=== PATIENT | female | born 1950 | race Two or more races ===

== ENCOUNTER 2017-02-27 17:40 | Inpatient (IN) | payer MEDICARE ==
[~2017-02-27] VITALS: Ht 152.4 cm; Wt 66.7 kg
--- NOTE | 2017-02-27 17:47 | NUR ---
PT [id number] FROM HOME:LOWER BACK PAIN. RIGHT LEG/ARM NUMBNESS. ANXIETY. PLACED ON MONITOR. AWAITING MD ORDER
--- NOTE | 2017-02-27 17:56 | NUR ---
CODE STROKE CALLED
--- NOTE | 2017-02-27 17:58 | NUR ---
CALLED [facility]'S TELESTROKE HOTLINE, SPOKE WITH SANTINO, PRESENTED PT, AWAITING CALL BACK FROM (NEUROLOGIST)
--- NOTE | 2017-02-27 17:58 | NUR ---
EKG IN PROGRESS
--- NOTE | 2017-02-27 17:58 | NUR ---
LAC #18 IV ACCESS. BLOOD SAMPLE COLLECTED SENT TO LAB
--- NOTE | 2017-02-27 18:00 | NUR ---
PT TAKEN TO CT VIA [facility] ACLS PROTOCOL
--- NOTE | 2017-02-27 18:00 | NUR ---
PT TO CT
--- NOTE | 2017-02-27 18:05 | NUR ---
TELENEURO AT BEDSIDE FOR ASSESSMENT
--- NOTE | 2017-02-27 18:09 | NUR ---
PT BACK FROM CT
[2017-02-27 18:14] LABS: BASOPHILS % (AUTO) 0.6 % (0.0-2.0); CALCIUM, SERUM 9.8 mg/dL (8.5-10.1); CARBON DIOXIDE 34 mmol/L (21-32); CHLORIDE 106 mmol/L (98-107); CREATININE 1.1 mg/dL (0.6-1.3); EOSINOPHILS # (AUTO) 0.3 /CMM (0.0-0.7); EOSINOPHILS % (AUTO) 4.1 % (0.0-6.0); GLUCOSE 130 mg/dL (74-106); HEMATOCRIT 40 % (33-45); HEMOGLOBIN 13.6 g/dL (11.5-14.8); LYMPHOCYTES % (AUTO) 26.6 % (20.0-44.0); MEAN CORPUSCULAR HEMOGLOBIN 30 PG (26.0-33.0); MEAN CORPUSCULAR HGB CONC 34 g/dl (31.0-36.0); MEAN CORPUSCULAR VOLUME 87 fL (82-100); MONOCYTES # (AUTO) 0.6 /CMM (0.1-1.30); MONOCYTES % (AUTO) 8.1 % (2.0-12.0); NEUTROPHILS # (AUTO) 4.6 /CMM (1.8-8.9); NEUTROPHILS % (AUTO) 60.6 % (43.0-81.0); PLATELET COUNT (AUTO) 162 /CMM (150-450); POTASSIUM 3.7 mmol/L (3.5-5.1); RDW COEFFICIENT OF VARIATION 12.8 (11.5-15.0); RED BLOOD CELL COUNT(AUTO) 4.56 MIL/uL (4.0-5.2); SODIUM SERUM 144 mmol/L (136-145); UREA NITROGEN, BLOOD 24 mg/dL (7-18); WHITE BLOOD COUNT (AUTO) 7.5 K/uL (4.3-11.0)
[2017-02-27 18:19] LABS: INR 0.97 (0.87-1.13); PROTHROMBIN TIME 10.1 SECS (9.5-12.7)
[2017-02-27 18:23] LABS: TROPONIN I < 0.017 ng/mL (0.00-0.056)
[2017-02-27] MEDS ORDERED: ATOR10TA PO (18:35)
[2017-02-27] MEDS ORDERED: LOSA1TAB39 PO (18:35)
[2017-02-27] MEDS ORDERED: METO25TA6 PO (18:35)
[2017-02-27] MEDS ORDERED: CLON0.1T PO (18:35)
[2017-02-27] MEDS ORDERED: ASPI81TA2 PO (18:35)
[2017-02-27] MEDS ORDERED: POTA20TA83 PO (18:35)
--- NOTE | 2017-02-27 19:21 | NUR ---
[facility] PAGED, CLOTH SHEARING SUPERVISOR
--- NOTE | 2017-02-27 19:24 | NUR ---
GAVE REPORT TO JAMEE FOR KRISTA
--- NOTE | 2017-02-27 19:32 | NUR ---
CALLED NURSING SUP. FOR TELE BED
--- NOTE | 2017-02-27 19:46 | NUR ---
[facility] REPAGED
--- NOTE | 2017-02-27 19:48 | NUR ---
DR. RAE IS ON THE PHONE WITH DR. RODRIGUEZ RE: PT ADMISSION
--- NOTE | 2017-02-27 20:15 | NUR ---
REPORT GIVEN TO MARTY QUAN - COCOA BEAN ROASTER
--- NOTE | 2017-02-27 20:25 | NUR ---
TELE/RN NOTES RECEIVED PT. FROM ER. PT. IS AWAKE, ALERT AND ORIENTED X4. BREATHING EVEN AND UNLABORED ON ROOM AIR. NO SOB, RESPIRATORY DISTRESS OR COMPLAINTS OF PAIN NOTED AT THIS TIME. PT. DENIES ANY WEAKNESS OR HEADACHE. NEURO CHECK NORMAL. ORIENTED PT. TO ROOM. PLACED EXTERNAL SCHEDULE HANGER ON PT. CURRENT RHYTHM = SINUS RHYTHM HR 68. EDUCATED PT. ON STROKE S/S. PT. VERBALIZED UNDERSTANDING. SIDE RAILS PADDED. SEIZURE PRECAUTIONS IMPLEMENTED. BED IN LOWEST POSITION, CALL LIGHT WITHIN REACH, WILL CONTINUE TO MONITOR.
--- NOTE | 2017-02-27 20:49 | NUR ---
PER DR. KYRA PARDO FOR ECHO/CAROTID ULTRASOUND TO BE DONE TOMORROW MORNING
[2017-02-27 20:54] VITALS: BP 151/78
[2017-02-27] MEDS ORDERED: METOPROLOL TARTRATE 25 MG TABLET PO SCH (21:00)
[2017-02-27] MEDS ORDERED: Medication Not On Formulary EA (Losartan/Hydrochlorothiazide (Losartan-Hctz 100-25 Mg Ta PO SCH (21:00)
[2017-02-27] MEDS: ATORVASTATIN 10 MG TABLET PO SCH (21:00)
[2017-02-27] MEDS ORDERED: CLONIDINE HCL 0.1 MG TABLET PO SCH (21:00)
[2017-02-27] MEDS ORDERED: POTASSIUM CHLORIDE 20 MEQ TAB.PRT.SR PO SCH (21:00)
[2017-02-27] MEDS ORDERED: LOSARTAN POTASSIUM 50 MG TABLET PO SCH (21:01)
[2017-02-27] MEDS ORDERED: HYDROCHLOROTHIAZIDE 25 MG TABLET PO SCH (21:01)
--- NOTE | 2017-02-27 21:05 | NUR ---
TELE/RN NOTES SPOKE WITH MYRIAM KAY FROM RADIOLOGY. MYRIAM STATED SHE SPOKE WITH DR. RAE REGARDING PT. STAT CAROTID DUPLEX AND STAT ECHOCARDIOGRAM. VP RESEARCH IS NOT HERE TONIGHT. SHE STATED PER DR. RAE OK FOR CAROTID DUPLEX AND ECHO TO BE DONE TOMORROW. WILL CONTINUE TO MONITOR.
--- NOTE | 2017-02-27 21:08 | NUR ---
RODO WESLEY RN IS AWARE ECHO/CAROTID ULTRASOUND WILL BE DONE TOMORROW PER DR. RAE
[2017-02-27 21:26] LABS: BASOPHILS # (AUTO) 0.1 /CMM (0.0-0.2); BASOPHILS % (AUTO) 0.6 % (0.0-2.0); EOSINOPHILS # (AUTO) 0.3 /CMM (0.0-0.7); EOSINOPHILS % (AUTO) 3.2 % (0.0-6.0); HEMATOCRIT 39 % (33-45); LYMPHOCYTES # (AUTO) 2.2 /CMM (0.8-4.8); LYMPHOCYTES % (AUTO) 26.4 % (20.0-44.0); MEAN CORPUSCULAR HEMOGLOBIN 29 PG (26.0-33.0); MEAN CORPUSCULAR HGB CONC 34 g/dl (31.0-36.0); MEAN CORPUSCULAR VOLUME 87 fL (82-100); MONOCYTES # (AUTO) 0.5 /CMM (0.1-1.30); MONOCYTES % (AUTO) 5.7 % (2.0-12.0); NEUTROPHILS # (AUTO) 5.3 /CMM (1.8-8.9); NEUTROPHILS % (AUTO) 64.1 % (43.0-81.0); PLATELET COUNT (AUTO) 167 /CMM (150-450); RDW COEFFICIENT OF VARIATION 13.1 (11.5-15.0); RED BLOOD CELL COUNT(AUTO) 4.43 MIL/uL (4.0-5.2); WHITE BLOOD COUNT (AUTO) 8.3 K/uL (4.3-11.0)
[2017-02-27 21:30] LABS: CALCIUM, SERUM 9.5 mg/dL (8.5-10.1); POTASSIUM 3.3 mmol/L (3.5-5.1)
[2017-02-27 21:38] LABS: INR 0.97 (0.87-1.13); PROTHROMBIN TIME 10.4 SECS (9.5-12.7)
[2017-02-27 21:42] LABS: ALBUMIN 3.8 g/dL (3.4-5.0); BILIRUBIN,TOTAL 0.5 mg/dL (0.2-1.0); THYROID STIMULATING HORMONE 0.609 uIU/mL (0.358-3.74)
[2017-02-27] MEDS ORDERED: ASPIRIN EC 81 MG TABLET.DR PO ONE (22:06)
[2017-02-27] MEDS ORDERED: ATORVASTATIN 10 MG TABLET ONE (22:07)
[2017-02-27] MEDS ORDERED: CLONIDINE HCL 0.1 MG TABLET ONE (22:07)
[2017-02-27] MEDS ORDERED: ENOXAPARIN SODIUM 40 MG/0.4 ML DISP.SYRIN SQ ONE (22:08)
[2017-02-27] MEDS ORDERED: METOPROLOL TARTRATE 50 MG TABLET ONE (22:09)
[2017-02-27] MEDS ORDERED: POTASSIUM CHLORIDE 20 MEQ TAB.PRT.SR PO ONE (22:10)
[2017-02-27] MEDS: ENOXAPARIN SODIUM 40 MG/0.4 ML DISP.SYRIN SQ SCH (22:35)
[2017-02-27] MEDS: ASPIRIN 81 MG TAB.CHEW PO SCH (22:56)
[2017-02-27] MEDS: BLOOD SUGAR DIAGNOSTIC 1 EACH STRIP IN SCH (23:03)
[2017-02-28] MEDS ORDERED: BLOOD SUGAR DIAGNOSTIC 1 EACH STRIP IN SCH
[2017-02-28 00:13] VITALS: BP 127/64
[2017-02-28 03:15] LABS: BASOPHILS # (AUTO) 0.1 /CMM (0.0-0.2); BASOPHILS % (AUTO) 0.7 % (0.0-2.0); EOSINOPHILS # (AUTO) 0.3 /CMM (0.0-0.7); EOSINOPHILS % (AUTO) 3.7 % (0.0-6.0); HEMATOCRIT 40 % (33-45); HEMOGLOBIN 13.5 g/dL (11.5-14.8); LYMPHOCYTES # (AUTO) 2.5 /CMM (0.8-4.8); LYMPHOCYTES % (AUTO) 31.8 % (20.0-44.0); MEAN CORPUSCULAR HEMOGLOBIN 30 PG (26.0-33.0); MEAN CORPUSCULAR HGB CONC 34 g/dl (31.0-36.0); MEAN CORPUSCULAR VOLUME 88 fL (82-100); MONOCYTES # (AUTO) 0.5 /CMM (0.1-1.30); MONOCYTES % (AUTO) 6.4 % (2.0-12.0); NEUTROPHILS # (AUTO) 4.5 /CMM (1.8-8.9); NEUTROPHILS % (AUTO) 57.4 % (43.0-81.0); PLATELET COUNT (AUTO) 159 /CMM (150-450); RDW COEFFICIENT OF VARIATION 13.8 (11.5-15.0); RED BLOOD CELL COUNT(AUTO) 4.55 MIL/uL (4.0-5.2); WHITE BLOOD COUNT (AUTO) 7.8 K/uL (4.3-11.0)
[2017-02-28 03:27] LABS: CALCIUM, SERUM 9.4 mg/dL (8.5-10.1); CREATININE 0.9 mg/dL (0.6-1.3); POTASSIUM 3.1 mmol/L (3.5-5.1)
[2017-02-28 03:29] LABS: PROTHROMBIN TIME 10.7 SECS (9.5-12.7)
[2017-02-28 04:00] VITALS: BP 130/61
--- NOTE | 2017-02-28 06:31 | NUR ---
TELE/RN NOTES PT. LYING IN BED RESTING. BREATHING EVEN AND UNLABORED ON ROOM AIR. NO SOB, RESPIRATORY DISTRESS OR COMPLAINTS OF PAIN NOTED AT THIS TIME. NO COMPLAINTS OF WEAKNESS OR HEADACHE AT THIS TIME. NEURO CHECKS PERFORMED Q4 HOURS. PT. WITH EXTERNAL QUALITY IMPROVEMENT MANAGER ON PT. CURRENT RHYTHM = SINUS [place] HR 58. ALL PT. NEEDS MET. BED IN LOWEST POSITION, SIDE RAILS UP X2, ALL SIDE RAILS PADDED. SEIZURE AND ASPIRATION PRECAUTIONS IMPLEMENTED. CALL LIGHT WITHIN REACH, WILL ENDORSE TO DAYSHIFT NURSE FOR CONTINUITY OF CARE.
[2017-02-28] MEDS: BLOOD SUGAR DIAGNOSTIC 1 EACH STRIP IN SCH ×4 (06:49→22:31)
[2017-02-28 07:30] LABS: APPEARANCE,URINE CLEAR (CLEAR); BILIRUBIN,URINE NEGATIVE (NEGATIVE); BLOOD, URINE NEGATIVE Ery/uL (NEGATIVE); COLOR,URINE YELLOW (YELLOW); KETONES,URINE NEGATIVE (NEGATIVE); LEUKOCYTE ESTERASE ,URINE TRACE (NEGATIVE); NITRITE, URINE NEGATIVE (NEGATIVE); PH,URINE 5.5 (5.0-8.0); PROTEIN,URINE NEGATIVE (NEGATIVE); UGLUCOSE NEGATIVE (NEGATIVE); UROBILINOGEN,URINE 0.2 EU/dL (0.2)
--- NOTE | 2017-02-28 07:30 | NUR ---
MS/RN OPENING NOTE PT. IS LYING IN BED SLEEPING. NO S/S OF DISTRESS, NO SOB, BREATHING ON ROOM AIR EVENLY AND UNLABORED. BED IS IN LOW POSITION, 2 SIDE RAILS UP, CALL LIGHT WITHIN REACH, AND ENT CONSULTANT NURSE PROVIDED REPORT. PT. IS ON TELEMETRY WITH LEADS ON.
--- NOTE | 2017-02-28 07:35 | NUR ---
MS/RN PT. IS WEARING EXTERNAL ACTIVITY ASSISTANT WITH LEADS ON.
[2017-02-28 07:40] LABS: BACTERIA,URINE 2+ /HPF (None Seen)
[2017-02-28 08:00] VITALS: BP 135/65
[2017-02-28 08:03] LABS: TROPONIN I < 0.017 ng/mL (0.00-0.056)
[2017-02-28 08:04] LABS: THYROID STIMULATING HORMONE 0.895 uIU/mL (0.358-3.74)
[2017-02-28] MEDS: POTASSIUM CHLORIDE 20 MEQ TAB.PRT.SR PO SCH ×3 (09:34→12:17)
[2017-02-28] MEDS: ATORVASTATIN 10 MG TABLET PO SCH (09:34)
[2017-02-28] MEDS: ASPIRIN 81 MG TAB.CHEW PO SCH (09:34)
[2017-02-28] MEDS: ACETAMINOPHEN 325 MG TABLET PO PRN ×2 (10:33→18:05)
--- NOTE | 2017-02-28 11:00 | NUR ---
MS/ RN BLOOD PRESSURE HOME MEDS WERE HELD PER Jasmine HANSON.
[2017-02-28 12:00] VITALS: BP 151/75
[2017-02-28 16:00] VITALS: BP_SYST 154; BP_SYST 158; BP_DIAS 79
--- NOTE | 2017-02-28 19:00 | NUR ---
MS/RN CLOSING NOTES PT. IS SITTING UP IN BED WATCHING TV AWAKE, A&OX4. NO S/S OF DISTRESS, NO SOB, PT. IS BREATHING ON ROOM AIR UNLABORED AND EVENLY. PT. HAS A LEFT ANTECUBITAL IV SITE INTACT. BED IS IN LOW POSITION, 2 SIDE RAILS UP, CALL LIGHT WITHIN REACH, AND ALL NEEDS ATTENDED TO. TYLENOL WAS GIVEN TO PT. FOR HEADACHE PAIN. WILL ENDORSE REPORT TO ORDER PACKER OR PACKAGER NURSE.
[2017-02-28 20:00] VITALS: BP 146/79
[2017-02-28] MEDS ORDERED: METOPROLOL TARTRATE 50 MG TABLET ONE (21:20)
[2017-02-28] MEDS: METOPROLOL TARTRATE 50 MG TABLET PO SCH (21:26)
[2017-02-28] MEDS: ENOXAPARIN SODIUM 40 MG/0.4 ML DISP.SYRIN SQ SCH (21:26)
[2017-03-01] VITALS (7 sets, daily range): BP systolic 136–164; BP diastolic 70–91
--- NOTE | 2017-03-01 06:24 | NUR ---
BIOLOGY INTERN NOTES AWAKE & RESPONSIVE. NOT IN ANY DISTRESS. NO SOB NOTED. DENIES ANY PAIN OR DISCOMFORT AT THIS TIME. ON TELE SR @ 86 WITH IV-HL PATENT & INTACT. MONITORED ACCORDINGLY. CALL LIGHT WITHIN REACH. BED IN LOWEST POSITION. SR UP X 2 FOR SAFETY. WILL ENDORSE TO NEXT SHIFT.
[2017-03-01 06:28] LABS: CALCIUM, SERUM 9.8 mg/dL (8.5-10.1); CREATININE 0.8 mg/dL (0.6-1.3); POTASSIUM 3.8 mmol/L (3.5-5.1)
--- NOTE | 2017-03-01 07:15 | NUR ---
ms rn Initial notes Received patient in bed, awake, head of bed elevated, no SOB or distress noted. Alert and oriented x 3, verbally responsive and able to make needs known. IV intact and patent. Kept patient clean and comfortable in bed, call light with in patient reach, will continue to monitor accordingly.
[2017-03-01] MEDS: BLOOD SUGAR DIAGNOSTIC 1 EACH STRIP IN SCH ×4 (08:10→22:20)
[2017-03-01] MEDS: ASPIRIN 81 MG TAB.CHEW PO SCH (08:11)
[2017-03-01] MEDS: ATORVASTATIN 10 MG TABLET PO SCH (08:11)
[2017-03-01] MEDS: METOPROLOL TARTRATE 50 MG TABLET PO SCH ×2 (08:12→20:50)
[2017-03-01] MEDS: ACETAMINOPHEN 325 MG TABLET PO PRN (08:39)
--- NOTE | 2017-03-01 09:44 | NUR ---
MS RN NOTES Richardson SERVICE PROVIDER came seen and examined the patient and ordered Ativan 0.5 mg 1 tab PO x 1only prior MRI of the Brain. [place] 5/325 mg 1 tab PO Q6hrs PRN. All orders carried out and noted. Will continue to monitor patient accordingly.
[2017-03-01] MEDS ORDERED: HYDROCODONE/APAP 5/325MG 1 EACH TABLET PO PRN (10:00)
--- NOTE | 2017-03-01 10:08 | NUR ---
TEXTED DR. NAVARRETE FOR MRI APPROVAL.
--- NOTE | 2017-03-01 10:15 | NUR ---
DR. NAVARRETE TEXTED BACK, SAID HE WILL LET US KNOW.
[2017-03-01] MEDS ORDERED: LORAZEPAM 0.5 MG TABLET PO ONE (11:00)
--- NOTE | 2017-03-01 11:50 | NUR ---
ms rn notes Dr. Garner came seen and examined the patient and ordered Nicotine patch 7mg Q24hrs. All orders carried out and noted. Will continue to monitor patient accordingly.
[2017-03-01] MEDS: NICOTINE PATCH (7MG) 7 MG PATCH.TD24 TD SCH (13:01)
[2017-03-01] MEDS ORDERED: LORAZEPAM 0.5 MG TABLET PO STA (15:19)
--- NOTE | 2017-03-01 19:14 | NUR ---
ms rn closing notes All needs provided, attended, and anticipated. Kept patient clean and comfortable in bed, call light with in patient reach, will continue to monitor accordingly. Endorsed to next shift RN to continue care.
--- NOTE | 2017-03-01 19:20 | NUR ---
MS/RN OPENING NOTES PT ASLEEP, RESTING COMFORTABLY IN BED, EASILY AROUSABLE TO NEARBY NOISE. ON ROOM AIR WITH NO DISTRESS NOTED. BREATHING EVEN AND UNLABORED. PT IS A/OX4. DENIES PAIN AT THIS TIME. IV TO LAC PATENT AND INTACT. ABLE TO MAKE NEEDS KNOWN. BED IN LOW/LOCKED POSITION WITH CALL LIGHT IN REACH. BED RAILS UPX2. WILL CONTINUE TO MONITOR
[2017-03-01] MEDS: ENOXAPARIN SODIUM 40 MG/0.4 ML DISP.SYRIN SQ SCH (20:51)
--- NOTE | 2017-03-01 22:25 | NUR ---
MS/RN NOTES BLOOD ENUXQ=070 NO INSULIN COVERAGE ORDERED. SNACKS PROVIDED AT BEDSIDE. WILL MONITOR FOR S/S OF HYPO/HYPERGLYCEMIA
[2017-03-02] MEDS: BLOOD SUGAR DIAGNOSTIC 1 EACH STRIP IN SCH ×2 (06:33→12:00)
--- NOTE | 2017-03-02 06:44 | NUR ---
MS/RN NOTES BLOOD QMVUH=395, NO INSULIN ORDERED FOR COVERAGE
--- NOTE | 2017-03-02 07:03 | NUR ---
MS/RN CLOSING NOTES PT AWAKE, A/OX3. ON ROOM AIR, BREATHING EVEN AND UNLABORED. DENIES PAIN. IV TO LAC PATENT AND INTACT. NEURO CHECKS Q4H. NO ACUTE CHANGES NOTED. SLEPT WELL THROUGHOUT THE NIGHT. ALL NEEDS MET AND ATTENDED TO. MADE PT COMFORTABLE THROUGHOUT SHIFT. BED IN LOW/LOCKED POSITION WITH CALL LIGHT IN REACH. BED RAILS UP. WILL ENDORSE TO AM SHIFT KRISTA.
--- NOTE | 2017-03-02 07:20 | NUR ---
RN OPEN NOTES RECEIVED REPORT FROM POLICE CAPTAIN PRECINCT NURSE. WILL CONTINUE TO MONITOR AND ASSESS PATIENT CONDITION
[2017-03-02] MEDS: ACETAMINOPHEN 325 MG TABLET PO PRN (07:40)
--- NOTE | 2017-03-02 07:45 | NUR ---
BLOOD PRESSURE IS HIGH 184/84, 187/80. SPOKE WITH VALENTIN. NEW ORDERS RECEIVED AND CARRIED OUT
[2017-03-02 08:00] VITALS: BP 184/84
[2017-03-02] MEDS ORDERED: CLONIDINE HCL 0.1 MG TABLET PO PRN (08:00)
[2017-03-02 08:07] VITALS: BP 184/84
[2017-03-02] MEDS: METOPROLOL TARTRATE 50 MG TABLET PO SCH (08:07)
[2017-03-02] MEDS: ASPIRIN 81 MG TAB.CHEW PO SCH (08:07)
[2017-03-02] MEDS: ATORVASTATIN 10 MG TABLET PO SCH (08:08)
[2017-03-02] MEDS: NICOTINE PATCH (7MG) 7 MG PATCH.TD24 TD SCH (08:09)
--- NOTE | 2017-03-02 09:45 | NUR ---
BLOOD PRESSURE RECHECKED 128/72 HEART RATE 81
[2017-03-02] MEDS ORDERED: CEFTRIAXONE 1 G in IV D5W 50 ML IV ONE (11:00)
[2017-03-02] MEDS ORDERED: IV NS 0.9% 250 ML IV ONE (11:28)
[2017-03-02] MEDS ORDERED: SECONDARY IV SET 1 EA INFUS.SET MC ONE (11:28)
[2017-03-02] MEDS ORDERED: IV SET PRIMARY PUMP SET 1 EA INFUS.SET MC ONE (11:28)
--- NOTE | 2017-03-02 14:15 | NUR ---
LAB DIRECTOR NOTES PATIENT'S DISCHARGE ORDER RECEIVED AND CARRIED OUT. PATIENT VERBALIZED UNDERSTANDING AND ALLOWED TIME TO ASK QUESTIONS. NO CONCERNS REGRADING DISCHARGE. PATIENT RECEIVED PRESCRIPTION AT TIME OF DISCHARGE. ALL PERSONAL BELONGING WITH PATIENT AT TIME OF DISCHARGE. IV SITE REMOVED. ID BAND REMOVED. PATIENT PICKED UP BY HER AND A PRIVATE CAR. PATIENT ESCORTED TO MAIN LOBBY WITH A RELIEF MATE.
== END 2017-03-02 14:15 | disposition home or self-care (01) | DRG 69 ==
LOC: ER 17:42 → TELE 20:09 → MED 03-01 09:24
PROVIDERS: ADMIT Internal Medicine; ATTEND Internal Medicine
DX: G45.9 Transient cerebral ischemic attack, unspecified (principal); I50.32 Chronic diastolic (congestive) heart failure; N39.0 Urinary tract infection, site not specified; E78.5 Hyperlipidemia, unspecified; M19.90 Unspecified osteoarthritis, unspecified site; I25.10 Atherosclerotic heart disease of native coronary artery without angina pectoris; G89.29 Other chronic pain; D32.9 Benign neoplasm of meninges, unspecified; E87.6 Hypokalemia; F17.210 Nicotine dependence, cigarettes, uncomplicated; I11.0 Hypertensive heart disease with heart failure; I70.0 Atherosclerosis of aorta; M79.606 Pain in leg, unspecified; R79.89 Other specified abnormal findings of blood chemistry
CPT/HCPCS: 36415; 70450-TC; 70551-TC; 71010-TC; 80048-TC; 80053-TC; 80061-TC; 80305; 81000-TC; 82306; 82962-TC; 83880; 84439-TC; 84443-TC; 84484-TC; 85025-TC; 85652-TC; 85730-TC; 87081-TC; 87086-TC; 92611-TC; 93307-TC; 93880-TC; 97001-TC; 97003-TC; A4606; J0696; J1650; J7050; J7060; Z7610

== ENCOUNTER 2021-06-03 21:48 | Inpatient (IN) | payer MEDICARE ==
[~2021-06-03] VITALS: Ht 152.4 cm; Wt 58.1 kg
[~2021-06-03 21:48] MED LIST: ASPI-1169 PO; ATOR10TA PO; CLON0.1T PO; LOSA1TAB39 PO; METO25TA6 PO; POTA20TA83 PO
--- NOTE | 2021-06-03 23:12 | NUR ---
BIBS FOR C/O DIZZINESS X 2 DAYS. 1ST DOSE PFIZER TAKE 06/02/21. PATIENT A/OX4. ON ROOM AIR TOLERATING WELL AT SPO2 95%.
--- NOTE | 2021-06-03 23:47 | NUR ---
ESTABLISHED IV RAC#20G
--- NOTE | 2021-06-03 23:50 | NUR ---
COVID SWAB PCR AND RAPID COLLECTED AND SENT TO LAB
[2021-06-03] MEDS ORDERED: MECLIZINE HCL 12.5 MG TABLET ONE (23:52)
[2021-06-03 23:56] LABS: BASOPHILS % (AUTO) 1.2 % (0.0-2.0); EOSINOPHILS % (AUTO) 0.1 % (0.0-6.0); HEMATOCRIT 39 % (33-45); HEMOGLOBIN 13.4 g/dL (11.5-14.8); LYMPHOCYTES # (AUTO) 0.4 K/uL (0.8-4.8); LYMPHOCYTES % (AUTO) 10.5 % (20.0-44.0); MEAN CORPUSCULAR HGB CONC 35 g/dl (31.0-36.0); MEAN CORPUSCULAR VOLUME 86 fL (82-100); MONOCYTES # (AUTO) 0.3 K/uL (0.1-1.30); NEUTROPHILS % (AUTO) 79.2 % (43.0-81.0); PLATELET COUNT (AUTO) 137 K/uL (150-450); RED BLOOD CELL COUNT(AUTO) 4.51 MIL/uL (4.0-5.2); WHITE BLOOD COUNT (AUTO) 3.8 K/uL (4.3-11.0)
[2021-06-04] MEDS ORDERED: IV NS 0.9% 1,000 ML BAG IV ONE
[2021-06-04] MEDS ORDERED: MECLIZINE HCL 12.5 MG TABLET PO ONE
--- NOTE | 2021-06-04 00:02 | NUR ---
PATIENT TAKEN TO RADIOLOGY FOR CT
--- NOTE | 2021-06-04 00:13 | NUR ---
PATIENT RETURN TO ER ROOM 1
[2021-06-04 00:20] LABS: CALCIUM, SERUM 9.8 mg/dL (8.5-10.1); CARBON DIOXIDE 31 mmol/L (21-32); CHLORIDE 98 mmol/L (98-107); GLUCOSE 108 mg/dL (74-106); POTASSIUM 3.6 mmol/L (3.5-5.1); SODIUM SERUM 137 mmol/L (136-145); UREA NITROGEN, BLOOD 21 mg/dL (7-18)
[2021-06-04 00:25] LABS: ALANINE AMINOTRANSFERASE 34 U/L (12-78); ALBUMIN 3.7 g/dL (3.4-5.0); ALKALINE PHOSPHATASE 75 U/L (46-116); ASPARTATE AMINOTRANSFERASE 23 U/L (15-37); BILIRUBIN,DIRECT 0.2 mg/dL (0.0-0.2); BILIRUBIN,TOTAL 0.9 mg/dL (0.2-1.0); TOTAL PROTEIN, SERUM 8.2 g/dL (6.4-8.2)
--- NOTE | 2021-06-04 02:09 | NUR ---
URINE SAMPLE COLLECTED AND SENT TO LAB
[2021-06-04 02:16] LABS: BILIRUBIN,URINE Negative (NEGATIVE); COLOR,URINE YELLOW (YELLOW); LEUKOCYTE ESTERASE ,URINE Trace (NEGATIVE); NITRITE, URINE Negative (NEGATIVE); PROTEIN,URINE Negative (NEGATIVE); UGLUCOSE Negative (NEGATIVE); UROBILINOGEN,URINE 0.2 EU/dL (0.2)
[2021-06-04] MEDS ORDERED: ASPIRIN 81 MG TAB.CHEW PO ONE (02:30)
[2021-06-04 02:37] LABS: BACTERIA,URINE Rare /HPF (None Seen); SQUAMOUS EPITHELIAL CELL,UR Few /HPF (None Seen)
[2021-06-04] MEDS ORDERED: ASPIRIN EC 81 MG TABLET.DR PO ONE (02:40)
[2021-06-04] MEDS ORDERED: ASPIRIN 81 MG TAB.CHEW ONE (02:41)
[2021-06-04 03:17] LABS: THYROID STIMULATING HORMONE 0.365 uIU/mL (0.358-3.74)
[2021-06-04] MEDS ORDERED: PANTOPRAZOLE 40 MG TABLET.DR PO ONE (07:29)
[2021-06-04] MEDS: PANTOPRAZOLE 40 MG TABLET.DR PO SCH (07:33)
[2021-06-04] MEDS ORDERED: VALS1TAB8 PO (07:38)
[2021-06-04] MEDS ORDERED: ERGO500093 PO (07:38)
--- NOTE | 2021-06-04 08:26 | NUR ---
US AT BEDSIDE
[2021-06-04] MEDS: ASPIRIN EC 325 MG TABLET.DR PO SCH (09:00)
[2021-06-04] MEDS ORDERED: ASPIRIN EC 325 MG TABLET.DR PO ONE (10:05)
--- NOTE | 2021-06-04 11:17 | NUR ---
ROOM ASSIGNMENT: 102
--- NOTE | 2021-06-04 11:25 | NUR ---
REPORT GIVEN TO GLADIS FERGUSON FOR KRISTA
[2021-06-04 12:06] VITALS: BP 138/52
--- NOTE | 2021-06-04 12:07 | NUR ---
received awake,alert ,no acute distress,vss,awaits swallow eval,
[2021-06-04 16:00] VITALS: BP 138/59
--- NOTE | 2021-06-04 18:48 | NUR ---
RN NOTE PATIENT OBSERVED IN AWAKE, ALERT AND ORIENTED X4, ABLE TO VERBALIZE NEEDS, ON TELE MONITOR, SR OF 78, ON ROOM AIR O2 SAT OF 98%, BREATHING EVEN AND UNLABORED, NIHSS ASSESSMENT DONE, AMBULATORY WITH SUPERVISION, NO PAIN COMPLAINS, IV SITE ON RIGHT AC PATENT FLUSHING WELL, SAFETY MEASURE OBSERVED, BED WHEELS LOCK, CALL LIGHT WITHIN REACH, WILL CONTINUE TO MONITOR. Addendum: 06/04/21 at 1856 by KIRSTEN SANDERS RN RN NOTE PATIENT OBSERVED IN AWAKE, ALERT AND ORIENTED X4, ABLE TO VERBALIZE NEEDS, ON TELE MONITOR, SR OF 78, ON ROOM AIR O2 SAT OF 98%, BREATHING EVEN AND UNLABORED, NIHSS ASSESSMENT DONE, AMBULATORY WITH SUPERVISION, NO PAIN COMPLAINS, IV SITE ON RIGHT AC PATENT FLUSHING WELL, SAFETY MEASURE OBSERVED, BED WHEELS LOCK, CALL LIGHT WITHIN REACH, WILL CONTINUE TO MONITOR. WILL ENDORSE TO NOC SHIFT.
--- NOTE | 2021-06-04 19:30 | NUR ---
RN OPENING NOTES: RECEIVED PT A/OX4 IN BED RESTING COMFORTABLY. PATIENT IN NO S/SX OF ACUTE DISTRESS AT THIS TIME. NO SOB NOTED. PATIENT'S BREATHING IS EVEN AND UNLABORED. PATIENT IS ON ROOM AIR; TOLERATING WELL. PATIENT ON TELE MONITORING READING SINUS RHYTHM HR IS AT 89 AT THE TIME OF RECEIVED. PATIENT ON 2GM SODIUM DIET; TOLERATES WELL. NOTED IV SITE ON R AC#20; PATENT, INTACT AND FLUSHING WELL; NO S/S OF INFECTION OR INFILTRATION. SAFETY MEASURES HAVE BEEN PROVIDED AND IMPLEMENTED. PATIENT BED ALARM IS ON. HEAD OF BED ELEVATED. BED IS LOCKED, IN LOWEST POSITION AND SIDE RAILS UP. CALL LIGHT WITHIN REACH OF THE PATIENT. APPLICABLE ISOLATION PRECAUTIONS IN PLACE. WILL CONTINUE TO MONITOR AND REASSESS FOR ANY CHANGES AND WILL CARRY OUT ANY ONGOING AND ACTIVE MD ORDER.
[2021-06-04 20:00] VITALS: BP 116/69
[2021-06-04] MEDS: MECLIZINE HCL 25 MG TABLET PO SCH (21:18)
[2021-06-05] VITALS: BP 126/62
--- NOTE | 2021-06-05 00:08 | NUR ---
RN NOTES PATIENT REMAINED TO BE IN NO SIGNS OF ACUTE RESPIRATORY DISTRESS , VITAL SIGNS WNL AT THIS TIME. BALANCE WHEEL FACER MADE AWARE. WILL CONTINUE TO MONITOR AND REASSESS FOR ANY CHANGES THROUGHOUT THE SHIFT.
[2021-06-05 04:00] VITALS: BP 113/65
--- NOTE | 2021-06-05 04:00 | NUR ---
RN NOTES NO NOTED CHANGES IN PATIENT CONDITION AT THIS TIME; PATIENT VITALS STABLE, NO SIGNS OF ACUTE RESPIRATORY DISTRESS. AM PATIENT CARE RENDERED. WOUND/OSTOMY NURSE MADE AWARE. WILL CONTINUE TO MONITOR AND REASSESS FOR ANY CHANGES THROUGHOUT THE SHIFT.
[2021-06-05] MEDS: MECLIZINE HCL 25 MG TABLET PO SCH ×2 (05:12→12:14)
--- NOTE | 2021-06-05 05:18 | NUR ---
RN NOTES CALLBACK DONE TO PT'S DAUGHTER ([phone]), PROVIDED GENERAL UPDATES ABOUT PT. RUSH WAS ASKING FOR ANY DC PLAN FOR HER MOM, RN MENTIONED THAT THERE'S NO DC PLAN AT THIS TIME AND MD WOULD STILL WANT TO DO SOME TEST/PROCEDURE LIKE CTA OF THE BRAIN. DAUGHTER ACKNOWLEDGED AND VERY THANKFUL. RN ADVISED PT'S DAUGHTER TO CALLBACK LATER TODAY TO GET MORE CONCRETE INFO AND UPDATES FROM MD. RUSH ACKNOWLEDGED.
[2021-06-05 06:03] LABS: BASOPHILS % (AUTO) 1.8 % (0.0-2.0); EOSINOPHILS % (AUTO) 5.2 % (0.0-6.0); HEMATOCRIT 37 % (33-45); HEMOGLOBIN 12.7 g/dL (11.5-14.8); LYMPHOCYTES # (AUTO) 0.6 K/uL (0.8-4.8); LYMPHOCYTES % (AUTO) 23.2 % (20.0-44.0); MEAN CORPUSCULAR HGB CONC 34 g/dl (31.0-36.0); MEAN CORPUSCULAR VOLUME 86 fL (82-100); MONOCYTES # (AUTO) 0.4 K/uL (0.1-1.30); MONOCYTES % (AUTO) 16.3 % (2.0-12.0); NEUTROPHILS # (AUTO) 1.3 K/uL (1.8-8.9); NEUTROPHILS % (AUTO) 53.5 % (43.0-81.0); PLATELET COUNT (AUTO) 122 K/uL (150-450); RED BLOOD CELL COUNT(AUTO) 4.32 MIL/uL (4.0-5.2); WHITE BLOOD COUNT (AUTO) 2.5 K/uL (4.3-11.0)
[2021-06-05 06:37] LABS: CALCIUM, SERUM 9.3 mg/dL (8.5-10.1); CREATININE 0.8 mg/dL (0.6-1.3)
--- NOTE | 2021-06-05 06:52 | NUR ---
RN CLOSING NOTE: PATIENT REMAINS IN ROOM IN NO SIGNS OF RESPIRATORY DISTRESS, PATIENT STILL ROOM AIR;TOLERATING WELL SATURATING @ >95% SP02. SAFETY MEASURES IMPLEMENTED, BED IN LOWEST POSITION, LOCKED, SIDE RAILS UP, CALL LIGHT WITHIN REACH. ALL NEEDS AND ORDERS ADDRESSED DURING THE SHIFT. IV ACCESS MAINTAINED INTACT, SECURED AND FLUSHING WELL. ALL DUE MEDS GIVEN ORDERED & SCHEDULED ; PATIENT TOLERATED WELL. PATIENT KEPT CLEAN AND COMFORTABLE WITHIN THE SHIFT. PATIENT ENDORSED TO INCOMING SHIFT RN WITH STABLE VITAL SIGN AND FOR CONTINUITY OF CARE.
[2021-06-05 07:18] LABS: EOSINOPHILS % (MANUAL) 5 % (0-4); LYMPHOCYTES % (MANUAL) 18 % (16-48); MONOCYTES % (MANUAL) 9 % (0-11.0); NEUTROPHILS % (MANUAL) 68 (42-76)
--- NOTE | 2021-06-05 07:30 | NUR ---
received awake,no acute distress.callight at reach.
[2021-06-05] MEDS: PANTOPRAZOLE 40 MG TABLET.DR PO SCH (07:46)
[2021-06-05 08:00] VITALS: BP 141/63
[2021-06-05] MEDS: ASPIRIN EC 325 MG TABLET.DR PO SCH (08:22)
[2021-06-05] MEDS ORDERED: IV NS 0.9% 250 ML IV ONE (09:03)
[2021-06-05] MEDS ORDERED: IOHEXOL-350 100 ML VIAL IV ONE (09:03)
[2021-06-05] MEDS ORDERED: CT SWABBABLE VALVE TRANS SET 1 EA INFUS.SET MC ONE (09:03)
[2021-06-05] MEDS: POTASSIUM CHLORIDE 20 MEQ TAB.PRT.SR PO SCH ×3 (11:04→13:21)
[2021-06-05 12:00] VITALS: BP 131/64
[2021-06-05] MEDS ORDERED: MECL-159 PO (14:04)
[2021-06-05 16:00] VITALS: BP 125/63
--- NOTE | 2021-06-05 16:30 | NUR ---
PT WAS DISCHARGED PER MD ORDER. IV DISCHARGED AND DRY DRESSING APPLIED. NO SIGNS OF INFECTION DISCHARGE INSTRUCTIONS GIVEN WITH FOLLOW UP CARE INSTRUCTIONS.
--- NOTE | 2021-06-07 11:24 | NUR ---
Spike Maker note: / Spike Maker consultation received on 06/04/21 for possible TIA. Patient was discharged home on 06/05/21, before social staff worker was able to complete the consultation.
== END 2021-06-05 17:31 | disposition home or self-care (01) | DRG 149 ==
LOC: ER 21:52 → TRANSITION 06-04 06:14 → TELE1 06-04 11:20
DX: H81.10 Benign paroxysmal vertigo, unspecified ear (principal); I50.32 Chronic diastolic (congestive) heart failure; N39.0 Urinary tract infection, site not specified; I11.0 Hypertensive heart disease with heart failure; E78.5 Hyperlipidemia, unspecified; Z20.822 Contact with and (suspected) exposure to COVID-19; I25.10 Atherosclerotic heart disease of native coronary artery without angina pectoris; G89.29 Other chronic pain; Z79.82 Long term (current) use of aspirin; Z86.73 Personal history of transient ischemic attack (TIA), and cerebral infarction without residual deficits; R91.8 Other nonspecific abnormal finding of lung field; D32.9 Benign neoplasm of meninges, unspecified; Z87.891 Personal history of nicotine dependence
CPT/HCPCS: 36415; 70450-TC; 70496-TC; 71045-TC; 71250-TC; 80048-TC; 80061-TC; 80076-TC; 81001; 83605-TC; 84443-TC; 84484-TC; 85025-TC; 85730-TC; 87040-TC; 87081-TC; 87086-TC; 92526; 92611-TC; 93307-TC; 97112-TC; 97116-TC; 97530-TC; C9803; G0378; J7050; J8597; Q9967; U0003

== ENCOUNTER 2022-03-30 03:04 | Emergency (ER) | payer MEDICARE ==
[~2022-03-30] VITALS: Ht 165.1 cm; Wt 60.3 kg
[~2022-03-30 03:04] MED LIST changes: -ATOR10TA PO; -CLON0.1T PO; +ERGO500093 PO; -LOSA1TAB39 PO; +MECL-159 PO; +VALS1TAB8 PO
--- NOTE | 2022-03-30 03:40 | NUR ---
BIBS C/O COUGH [id number]. +WHEEZING NOTED. PLACED COMFORTABLY IN BED. VITALS CHECKED.
--- NOTE | 2022-03-30 03:55 | NUR ---
SEEN BY DR TEJEDA AT BEDSIDE
--- NOTE | 2022-03-30 03:59 | NUR ---
COVID SWAB DONE AND SENT TO LAB
[2022-03-30] MEDS ORDERED: IPRATROPIUM NEB FS 0.5 MG/2.5 ML AMPUL.NEB NEB ONE (04:00)
[2022-03-30] MEDS ORDERED: methylPREDNISolone SOD SUCC 125 MG/2ML VIAL IV ONE (04:00)
[2022-03-30] MEDS ORDERED: ALBUTEROL FS 2.5 MG/3 ML VIAL.NEB ONE (04:00)
[2022-03-30] MEDS ORDERED: ALBUTEROL FS 2.5 MG/3 ML VIAL.NEB NEB ONE (04:00)
[2022-03-30] MEDS ORDERED: IPRATROPIUM NEB FS 0.5 MG/2.5 ML AMPUL.NEB ONE (04:01)
[2022-03-30] MEDS ORDERED: methylPREDNISolone SOD SUCC 125 MG/2ML VIAL ONE (04:01)
--- NOTE | 2022-03-30 04:15 | NUR ---
IV CANNULA G20 INSERTED ON RIGHT FA. BLOOD DRAWN AND SENT TO LAB
[2022-03-30 04:27] LABS: BASOPHILS % (AUTO) 0.2 % (0.0-2.0); EOSINOPHILS % (AUTO) 12.6 % (0.0-6.0); HEMATOCRIT 41 % (33-45); HEMOGLOBIN 14.3 g/dL (11.5-14.8); LYMPHOCYTES # (AUTO) 1.2 K/uL (0.8-4.8); LYMPHOCYTES % (AUTO) 23.6 % (20.0-44.0); MEAN CORPUSCULAR HGB CONC 35 g/dl (31.0-36.0); MEAN CORPUSCULAR VOLUME 87 fL (82-100); MONOCYTES # (AUTO) 0.5 K/uL (0.1-1.30); MONOCYTES % (AUTO) 10.4 % (2.0-12.0); NEUTROPHILS # (AUTO) 2.8 K/uL (1.8-8.9); NEUTROPHILS % (AUTO) 53.2 % (43.0-81.0); PLATELET COUNT (AUTO) 153 K/uL (150-450); RED BLOOD CELL COUNT(AUTO) 4.73 MIL/uL (4.0-5.2); WHITE BLOOD COUNT (AUTO) 5.3 K/uL (4.3-11.0)
[2022-03-30 04:40] LABS: ALANINE AMINOTRANSFERASE 35 U/L (12-78); ALBUMIN 3.8 g/dL (3.4-5.0); ALKALINE PHOSPHATASE 74 U/L (46-116); ASPARTATE AMINOTRANSFERASE 26 U/L (15-37); BILIRUBIN,DIRECT 0.1 mg/dL (0.0-0.2); BILIRUBIN,TOTAL 0.4 mg/dL (0.2-1.0); CALCIUM, SERUM 10.1 mg/dL (8.5-10.1); CARBON DIOXIDE 27 mmol/L (21-32); CHLORIDE 103 mmol/L (98-107); CREATININE 0.8 mg/dL (0.6-1.3); GLUCOSE 108 mg/dL (74-106); POTASSIUM 3.7 mmol/L (3.5-5.1); SODIUM SERUM 139 mmol/L (136-145); TOTAL PROTEIN, SERUM 7.3 g/dL (6.4-8.2); UREA NITROGEN, BLOOD 19 mg/dL (7-18)
[2022-03-30] MEDS ORDERED: IOHEXOL-350 100 ML VIAL IV ONE (05:10)
[2022-03-30 06:00] VITALS: BP 149/74
[2022-03-30] MEDS ORDERED: PRED20TA PO (06:30)
[2022-03-30] MEDS ORDERED: ALBU8.5H8 IH (06:30)
--- NOTE | 2022-03-30 06:56 | NUR ---
Patient discharged to home in stable condition. Written and verbal after care instructions given. Patient verbalizes understanding of instruction.
== END 2022-03-30 06:57 | disposition home or self-care (01) ==
LOC: ER 03:12
DX: J20.9 Acute bronchitis, unspecified (principal); Z20.822 Contact with and (suspected) exposure to COVID-19; R91.8 Other nonspecific abnormal finding of lung field; F17.210 Nicotine dependence, cigarettes, uncomplicated; Z86.73 Personal history of transient ischemic attack (TIA), and cerebral infarction without residual deficits; I10 Essential (primary) hypertension; Z85.818 Personal history of malignant neoplasm of other sites of lip, oral cavity, and pharynx; G89.29 Other chronic pain; M54.9 Dorsalgia, unspecified; Z79.82 Long term (current) use of aspirin
CPT/HCPCS: 36415; 71045; 71275; 80048; 80076; 83880; 84484 ×2; 85025; 85378; 87040 ×2; 87426; 87804; 94640; 96374; 99285; J2930; Q9967; C9803

== ENCOUNTER 2022-10-28 13:48 | Emergency (ER) | payer MEDICARE ==
[~2022-10-28] VITALS: Ht 152.4 cm; Wt 60.3 kg
[~2022-10-28 13:48] MED LIST changes: +ALBU8.5H8 IH; +PRED20TA PO
[2022-10-28] MEDS ORDERED: ALBUTEROL FS 2.5 MG/3 ML VIAL.NEB NEB ONE (14:30)
[2022-10-28] MEDS ORDERED: methylPREDNISolone SOD SUCC 125 MG/2ML VIAL IV ONE (14:30)
[2022-10-28] MEDS ORDERED: Magnesium 1GM/D5W 100ML PREMIX 200 ML IV ONE (14:30)
[2022-10-28] MEDS ORDERED: IPRATROPIUM NEB FS 0.5 MG/2.5 ML AMPUL.NEB NEB ONE (14:30)
[2022-10-28] MEDS ORDERED: ALBUTEROL FS 2.5 MG/3 ML VIAL.NEB ONE (14:44)
[2022-10-28] MEDS ORDERED: IPRATROPIUM NEB FS 0.5 MG/2.5 ML AMPUL.NEB ONE (14:44)
[2022-10-28] MEDS ORDERED: methylPREDNISolone SOD SUCC 125 MG/2ML VIAL ONE (14:45)
[2022-10-28] MEDS: Magnesium 1GM/D5W 100ML PREMIX 100 ML IV SCH ×2 (15:00→16:18)
[2022-10-28] MEDS ORDERED: FLUT12AE5 INH (17:03)
[2022-10-28] MEDS ORDERED: ALBU18HF2 INH (17:03)
[2022-10-28] MEDS ORDERED: PRED50TA PO (17:03)
[2022-10-28 17:38] VITALS: BP 128/62
== END 2022-10-28 17:39 | disposition home or self-care (01) ==
LOC: ER 13:52
DX: J45.901 Unspecified asthma with (acute) exacerbation (principal); I10 Essential (primary) hypertension; G89.29 Other chronic pain; F17.200 Nicotine dependence, unspecified, uncomplicated; Z79.899 Other long term (current) drug therapy
CPT/HCPCS: 99285; 96365; 96366; 96375; 94799; 94644; J2930; J3475

== ENCOUNTER 2023-02-19 04:42 | Emergency (ER) | payer MEDICARE ==
[~2023-02-19] VITALS: Ht 152.4 cm; Wt 59.9 kg
[~2023-02-19 04:42] MED LIST changes: +ALBU18HF2 INH; +FLUT12AE5 INH; +PRED50TA PO
--- NOTE | 2023-02-19 05:00 | NUR ---
BIBSESUMMER FROM HOME C/O SOB SINCE 11PM. USED INHALER WITH NO RELIEF. HX ASTHMA
--- NOTE | 2023-02-19 05:05 | NUR ---
RT AT BEDSIDE FOR BREATHING TREATMENT
--- NOTE | 2023-02-19 05:06 | NUR ---
STARTED 20G IV R HAND
[2023-02-19] MEDS ORDERED: IPRATROPIUM NEB FS 0.5 MG/2.5 ML AMPUL.NEB ONE (05:07)
[2023-02-19] MEDS ORDERED: ALBUTEROL FS 2.5 MG/3 ML VIAL.NEB ONE (05:07)
[2023-02-19] MEDS ORDERED: methylPREDNISolone SOD SUCC 125 MG/2ML VIAL ONE (05:25)
[2023-02-19] MEDS ORDERED: Magnesium 1GM/D5W 100ML PREMIX 100 ML IV ONE ×2 (05:25→05:42)
[2023-02-19] MEDS ORDERED: IPRATROPIUM NEB FS 0.5 MG/2.5 ML AMPUL.NEB NEB ONE (05:30)
[2023-02-19] MEDS ORDERED: methylPREDNISolone SOD SUCC 125 MG/2ML VIAL IV ONE (05:30)
[2023-02-19] MEDS ORDERED: Magnesium 1GM/D5W 100ML PREMIX 200 ML IV ONE (05:30)
[2023-02-19] MEDS ORDERED: ALBUTEROL FS 2.5 MG/3 ML VIAL.NEB CONTNEB ONE (05:30)
--- NOTE | 2023-02-19 05:37 | NUR ---
ADDENDUM: Intravenous End Time Documentation: Magnesium 1 gram IVPB premix : start time: 536; end time: 606 : IV site: PIV # 20 Port # 1
[2023-02-19] MEDS ORDERED: PRED50TA PO (06:05)
--- NOTE | 2023-02-19 07:47 | NUR ---
PT RESTING IN BED, CONNECTED TO THE MONITOR. BREATHING EVEN AND UNLABORED. NOT IN ACUTE DISTRESS.
--- NOTE | 2023-02-19 08:14 | NUR ---
AT BEDSIDE FOR EVAL
[2023-02-19] MEDS ORDERED: ALBU18HF2 INH (08:23)
[2023-02-19] MEDS ORDERED: IPRA3AMP23 IH (08:23)
--- NOTE | 2023-02-19 08:33 | NUR ---
Patient discharged to home in stable condition. Written and verbal after care instructions given. Patient verbalizes understanding of instruction.IV removed. Catheter intact and site benign. Pressure and 4x4 applied to site. No bleeding noted.
[2023-02-19 08:34] VITALS: BP 132/71
== END 2023-02-19 08:37 | disposition home or self-care (01) ==
LOC: ER 04:43
DX: J98.01 Acute bronchospasm (principal); I10 Essential (primary) hypertension; G89.29 Other chronic pain; F17.200 Nicotine dependence, unspecified, uncomplicated; Z86.73 Personal history of transient ischemic attack (TIA), and cerebral infarction without residual deficits; Z79.899 Other long term (current) drug therapy
CPT/HCPCS: 99285; 96365; 96375; 94644; J2930; J3475 ×2

== ENCOUNTER 2023-12-08 19:57 | Emergency (ER) | payer MEDICARE ==
[~2023-12-08] VITALS: Ht 152.4 cm; Wt 63.5 kg
[~2023-12-08 19:57] MED LIST changes: +IPRA3AMP23 IH
[2023-12-08] MEDS ORDERED: METOCLOPRAMIDE HCL 10 MG/2 ML VIAL ONE (20:32)
[2023-12-08] MEDS: METOCLOPRAMIDE HCL 10 MG/2 ML VIAL IV ONE (20:48)
[2023-12-08 20:52] LABS: BASOPHILS # (AUTO) 0.2 K/uL (0.0-0.2); BASOPHILS % (AUTO) 3.5 % (0.0-2.0); EOSINOPHILS # (AUTO) 0.5 K/uL (0.0-0.7); HEMATOCRIT 40 % (33-45); HEMOGLOBIN 13.3 g/dL (11.5-14.8); LYMPHOCYTES # (AUTO) 1.3 K/uL (0.8-4.8); MEAN CORPUSCULAR HEMOGLOBIN 28 PG (26.0-33.0); MEAN CORPUSCULAR HGB CONC 33 g/dl (31.0-36.0); MEAN CORPUSCULAR VOLUME 84 fL (82-100); MONOCYTES # (AUTO) 0.4 K/uL (0.1-1.30); MONOCYTES % (AUTO) 7.1 % (2.0-12.0); NEUTROPHILS # (AUTO) 3.1 K/uL (1.8-8.9); NEUTROPHILS % (AUTO) 56.4 % (43.0-81.0); PLATELET COUNT (AUTO) 213 K/uL (150-450); RED BLOOD CELL COUNT(AUTO) 4.73 MIL/uL (4.0-5.2); RED CELL DISTRIBUTION WIDTH 13.9 % (11.5-15.0); WHITE BLOOD COUNT (AUTO) 5.5 K/uL (4.3-11.0)
[2023-12-08 21:04] LABS: CALCIUM, SERUM 9.9 mg/dL (8.5-10.1); CARBON DIOXIDE 30 mmol/L (21-32); CHLORIDE 102 mmol/L (98-107); CREATININE 1.1 mg/dL (0.6-1.3); GLUCOSE 135 mg/dL (74-106); POTASSIUM 3.3 mmol/L (3.5-5.1); SODIUM SERUM 139 mmol/L (136-145); UREA NITROGEN, BLOOD 20 mg/dL (7-18)
[2023-12-08 21:11] LABS: ALANINE AMINOTRANSFERASE 25 U/L (12-78); ALBUMIN 3.5 g/dL (3.4-5.0); ALKALINE PHOSPHATASE 66 U/L (46-116); ASPARTATE AMINOTRANSFERASE 21 U/L (15-37); BILIRUBIN,DIRECT 0.1 mg/dL (0.0-0.2); BILIRUBIN,TOTAL 0.3 mg/dL (0.2-1.0); TOTAL PROTEIN, SERUM 7.7 g/dL (6.4-8.2)
[2023-12-08 22:09] LABS: APPEARANCE,URINE Clear (CLEAR); BILIRUBIN,URINE SMALL (NEGATIVE); BLOOD, URINE Small Ery/uL (NEGATIVE); COLOR,URINE YELLOW (YELLOW); KETONES,URINE Trace mg/dL (NEGATIVE); LEUKOCYTE ESTERASE ,URINE Trace (NEGATIVE); NITRITE, URINE Negative (NEGATIVE); PROTEIN,URINE Negative (NEGATIVE); UGLUCOSE Negative (NEGATIVE); UROBILINOGEN,URINE 0.2 EU/dL (0.2)
[2023-12-08 22:32] LABS: ADD URINE CULTURE YES; BACTERIA,URINE Few /HPF (None Seen); SQUAMOUS EPITHELIAL CELL,UR Moderate /HPF (None Seen)
[2023-12-08] MEDS ORDERED: MECLIZINE HCL 12.5 MG TABLET ONE (22:38)
[2023-12-08] MEDS ORDERED: LORAZEPAM INJ 2 MG/ML VIAL ONE (22:40)
[2023-12-08] MEDS: MECLIZINE HCL 12.5 MG TABLET PO ONE (22:50)
[2023-12-08] MEDS: LORAZEPAM INJ 2 MG/ML VIAL IV ONE (22:50)
[2023-12-08] MEDS ORDERED: MECL-159 PO (23:29)
[2023-12-08] MEDS ORDERED: CEPH500T PO (23:29)
[2023-12-09] VITALS: BP 154/75; TEMP 98.2; O2SAT 97
== END 2023-12-09 00:01 | disposition home or self-care (01) ==
LOC: ER 20:02
DX: R42 Dizziness and giddiness (principal); N39.0 Urinary tract infection, site not specified; I10 Essential (primary) hypertension; J45.909 Unspecified asthma, uncomplicated; Z98.890 Other specified postprocedural states; F17.200 Nicotine dependence, unspecified, uncomplicated; Z79.82 Long term (current) use of aspirin; Z79.899 Other long term (current) drug therapy
CPT/HCPCS: 99284; 96374; 96375; 85025; 80048; 87086; 80076; 81001; 36415; J8597; J2060; J2765

== ENCOUNTER 2024-11-08 03:36 | Emergency (ER) | payer MEDICARE ==
[~2024-11-08] VITALS: Ht 165.1 cm; Wt 68.0 kg
[~2024-11-08 03:36] MED LIST changes: +CEPH500T PO
[2024-11-08] MEDS ORDERED: predniSONE 20 MG TABLET ONE (03:55)
[2024-11-08] MEDS: IPRATROPIUM NEB FS 0.5 MG/2.5 ML AMPUL.NEB NEB ONE (03:55)
[2024-11-08] MEDS: ALBUTEROL FS 2.5 MG/3 ML VIAL.NEB NEB ONE (03:55)
[2024-11-08] MEDS: predniSONE 20 MG TABLET PO ONE (03:57)
[2024-11-08 03:58] VITALS: O2SAT 95
[2024-11-08] MEDS ORDERED: ALBUTEROL FS 2.5 MG/3 ML VIAL.NEB ONE (04:08)
[2024-11-08] MEDS ORDERED: IPRATROPIUM NEB FS 0.5 MG/2.5 ML AMPUL.NEB ONE (04:08)
[2024-11-08 04:58] VITALS: O2SAT 100
[2024-11-08] MEDS ORDERED: PRED50TA PO (05:26)
[2024-11-08] MEDS ORDERED: IBUPROFEN 600 MG TABLET ONE (05:26)
[2024-11-08] MEDS: IBUPROFEN 600 MG TABLET PO ONE (05:26)
[2024-11-08] MEDS ORDERED: ALBU8.5H8 INH (05:26)
[2024-11-08] MEDS ORDERED: Magnesium 1GM/D5W 100ML PREMIX 200 ML IV ONE (05:28)
[2024-11-08] MEDS: Magnesium 1GM/D5W 100ML PREMIX 200 ML IV ONE (05:29)
[2024-11-08] MEDS ORDERED: DILTIAZEM HCL 50 MG IV ONE (06:30)
[2024-11-08] MEDS: IV NS 0.9% 1,000 ML BAG IV ONE (06:44)
[2024-11-08] MEDS: DILTIAZEM HCL 25 MG IV IV ONE (06:51)
[2024-11-08 07:03] VITALS: BP 135/79; TEMP 209.8; O2SAT 100
== END 2024-11-08 07:04 | disposition home or self-care (01) ==
LOC: ER 03:37
DX: J45.901 Unspecified asthma with (acute) exacerbation (principal); R00.0 Tachycardia, unspecified; F17.200 Nicotine dependence, unspecified, uncomplicated; I11.0 Hypertensive heart disease with heart failure; Z79.51 Long term (current) use of inhaled steroids; Z79.52 Long term (current) use of systemic steroids; Z79.82 Long term (current) use of aspirin; Z79.899 Other long term (current) drug therapy; Z86.73 Personal history of transient ischemic attack (TIA), and cerebral infarction without residual deficits
CPT/HCPCS: 99285; 96365; 99406; 93005 ×2; 73080; 73110; 94799; 94644; J3490; J7512; J7030; J3475

== ENCOUNTER 2024-12-07 03:43 | Emergency (ER) | payer MEDICARE ==
[~2024-12-07] VITALS: Ht 152.4 cm; Wt 63.5 kg
[~2024-12-07 03:43] MED LIST changes: +ALBU8.5H8 INH
[2024-12-07 03:50] VITALS: BP 141/80; TEMP 98
[2024-12-07] MEDS: ALBUTEROL FS 2.5 MG/3 ML VIAL.NEB NEB ONE (03:58)
[2024-12-07] MEDS: IPRATROPIUM NEB FS 0.5 MG/2.5 ML AMPUL.NEB NEB ONE (03:58)
[2024-12-07] MEDS ORDERED: ALBUTEROL FS 2.5 MG/3 ML VIAL.NEB ONE (04:00)
[2024-12-07] MEDS ORDERED: IPRATROPIUM NEB FS 0.5 MG/2.5 ML AMPUL.NEB ONE (04:00)
[2024-12-07] MEDS ORDERED: methylPREDNISolone SOD SUCC 125 MG/2ML VIAL ONE (04:00)
[2024-12-07 04:05] VITALS: O2SAT 93
[2024-12-07] MEDS: methylPREDNISolone SOD SUCC 125 MG/2ML VIAL IV ONE (04:20)
[2024-12-07 05:05] VITALS: O2SAT 99
== END 2024-12-07 05:57 | disposition home or self-care (01) ==
LOC: ER 03:46
DX: J45.901 Unspecified asthma with (acute) exacerbation (principal); F17.200 Nicotine dependence, unspecified, uncomplicated; I10 Essential (primary) hypertension; Z79.51 Long term (current) use of inhaled steroids; Z79.52 Long term (current) use of systemic steroids; Z79.82 Long term (current) use of aspirin; Z79.899 Other long term (current) drug therapy; Z86.73 Personal history of transient ischemic attack (TIA), and cerebral infarction without residual deficits
CPT/HCPCS: J2919

== ENCOUNTER 2024-12-27 23:25 | Inpatient (IN) | payer MEDICARE ==
[~2024-12-27] VITALS: Ht 152.4 cm; Wt 71.7 kg
[2024-12-27 04:30] VITALS: BP 128/76; TEMP 97.7; O2SAT 92
[2024-12-27] MEDS: ALBUTEROL FS 2.5 MG/3 ML VIAL.NEB CONTNEB ONE (23:57)
[2024-12-27] MEDS ORDERED: ALBUTEROL FS 2.5 MG/3 ML VIAL.NEB ONE (23:59)
[2024-12-28] VITALS (16 sets, daily range): BP systolic 118–126; BP diastolic 60–75; TEMP 98.2–99; O2SAT 91–100
[2024-12-28] MEDS: IPRATROPIUM NEB FS 0.5 MG/2.5 ML AMPUL.NEB NEB ONE (00:08)
[2024-12-28] MEDS ORDERED: IPRATROPIUM NEB FS 0.5 MG/2.5 ML AMPUL.NEB ONE ×2 (00:09→00:11)
[2024-12-28 00:31] LABS: BASOPHILS # (AUTO) 0.1 K/uL (0.0-0.2); BASOPHILS % (AUTO) 1.3 % (0.0-2.0); EOSINOPHILS # (AUTO) 0.7 K/uL (0.0-0.7); HEMATOCRIT 41 % (33-45); HEMOGLOBIN 13.5 g/dL (11.5-14.8); LYMPHOCYTES # (AUTO) 1.8 K/uL (0.8-4.8); LYMPHOCYTES % (AUTO) 18.1 % (20.0-44.0); MEAN CORPUSCULAR HEMOGLOBIN 29 PG (26.0-33.0); MEAN CORPUSCULAR HGB CONC 33 g/dl (31.0-36.0); MEAN CORPUSCULAR VOLUME 88 fL (82-100); MONOCYTES # (AUTO) 0.6 K/uL (0.1-1.30); MONOCYTES % (AUTO) 6.6 % (2.0-12.0); NEUTROPHILS # (AUTO) 6.5 K/uL (1.8-8.9); PLATELET COUNT (AUTO) 272 K/uL (150-450); RED BLOOD CELL COUNT(AUTO) 4.71 MIL/uL (4.0-5.2); RED CELL DISTRIBUTION WIDTH 13.9 % (11.5-15.0); WHITE BLOOD COUNT (AUTO) 9.8 K/uL (4.3-11.0)
[2024-12-28 01:07] LABS: CALCIUM, SERUM 10.5 mg/dL (8.5-10.1); CREATININE 1.3 mg/dL (0.6-1.3); POTASSIUM 3.8 mmol/L (3.5-5.1)
[2024-12-28 01:09] LABS: LACTIC ACID 1.3 mmol/L (0.4-2.0)
[2024-12-28 01:30] LABS: ALBUMIN 3.4 g/dL (3.4-5.0); BILIRUBIN,TOTAL 0.4 mg/dL (0.2-1.0); TOTAL PROTEIN, SERUM 7.9 g/dL (6.4-8.2)
[2024-12-28 01:33] LABS: ABG BASE EXCESS 0.6 mmol/L (-2.0-3.0); ABG OXYGEN SATURATION 90.1 % (94.0-98.0); ABG PCO2 37.4 mmHg (32.0-45.0); ABG PH 7.435 (7.350-7.450); ABG PO2 59.9 mmHg (83.0-108.0); ABG TOTAL HEMOGLOBIN 13.6 G/dL (12.0-16.0); COHb 0.3 % (0.5-1.5); MetHb 0.3 % (0.0-1.5); O2Hb 89.6 % (94.0-97.0); SITE, ABG RIGHT RADIAL
[2024-12-28] MEDS ORDERED: IV NS 0.9% 500 ML IV ONE (03:05)
[2024-12-28] MEDS ORDERED: CT SWABBABLE VALVE TRANS SET 1 EA INFUS.SET MC ONE (03:05)
[2024-12-28] MEDS ORDERED: IOHEXOL-350 100 ML VIAL IV ONE (03:05)
[2024-12-28] MEDS ORDERED: ONDANSETRON HCL/PF 4 MG/2 ML VIAL IVP PRN (04:30)
[2024-12-28] MEDS ORDERED: MECLIZINE HCL 25 MG TABLET PO PRN (04:30)
[2024-12-28] MEDS: LEVALBUTEROL HCL NEB 1.25 MG/0.5 ML VIAL.NEB NEB SCH (05:10)
[2024-12-28] MEDS: methylPREDNISolone SOD SUCC 125 MG/2ML VIAL IV SCH (05:12)
[2024-12-28] MEDS: IPRATROPIUM NEB FS 0.5 MG/2.5 ML AMPUL.NEB NEB SCH (05:34)
[2024-12-28 07:39] LABS: CALCIUM, SERUM 10.1 mg/dL (8.5-10.1); PHOSPHORUS 3.7 mg/dL (2.5-4.9); POTASSIUM 3.5 mmol/L (3.5-5.1)
[2024-12-28 07:42] LABS: BASOPHILS # (AUTO) 0.1 K/uL (0.0-0.2); BASOPHILS % (AUTO) 1.3 % (0.0-2.0); EOSINOPHILS # (AUTO) 0.6 K/uL (0.0-0.7); EOSINOPHILS % (AUTO) 7.3 % (0.0-6.0); HEMATOCRIT 40 % (33-45); HEMOGLOBIN 13.2 g/dL (11.5-14.8); LYMPHOCYTES # (AUTO) 1.2 K/uL (0.8-4.8); LYMPHOCYTES % (AUTO) 15.8 % (20.0-44.0); MEAN CORPUSCULAR HEMOGLOBIN 29 PG (26.0-33.0); MEAN CORPUSCULAR HGB CONC 33 g/dl (31.0-36.0); MEAN CORPUSCULAR VOLUME 87 fL (82-100); MONOCYTES # (AUTO) 0.4 K/uL (0.1-1.30); MONOCYTES % (AUTO) 5.1 % (2.0-12.0); NEUTROPHILS # (AUTO) 5.5 K/uL (1.8-8.9); NEUTROPHILS % (AUTO) 70.5 % (43.0-81.0); PLATELET COUNT (AUTO) 233 K/uL (150-450); RED BLOOD CELL COUNT(AUTO) 4.61 MIL/uL (4.0-5.2); RED CELL DISTRIBUTION WIDTH 14.3 % (11.5-15.0); WHITE BLOOD COUNT (AUTO) 7.8 K/uL (4.3-11.0)
[2024-12-28] MEDS ORDERED: CHOL100043 PO (08:17)
[2024-12-28] MEDS ORDERED: HYDR-3980 PO (08:25)
[2024-12-28] MEDS: ASPIRIN 81 MG TAB.CHEW PO SCH (08:42)
[2024-12-28] MEDS: POTASSIUM CHLORIDE 20 MEQ TAB.PRT.SR PO SCH (08:43)
[2024-12-28] MEDS: METOPROLOL TARTRATE 25 MG TABLET PO SCH ×2 (08:43→16:59)
[2024-12-28] MEDS: BUDESONIDE RESPULE INH 0.5 MG/2 ML AMPUL.NEB HHN SCH (08:44)
[2024-12-28] MEDS: VALSARTAN 80 MG TABLET PO SCH (08:44)
[2024-12-28] MEDS: ENOXAPARIN SODIUM 40 MG/0.4 ML DISP.SYRIN SQ SCH (08:48)
[2024-12-28] MEDS: ACETAMINOPHEN 325 MG TABLET PO PRN (23:23)
[2024-12-29] VITALS (10 sets, daily range): BP systolic 116–136; BP diastolic 57–69; TEMP 97.5–97.7; O2SAT 88–97
[2024-12-29] MEDS ORDERED: HYDR-4077 PO (11:56)
[2024-12-29] MEDS ORDERED: METH4TAB3 PO (11:56)
[2024-12-29] MEDS ORDERED: methylPREDNISolone SOD SUCC 125 MG/2ML VIAL IV SCH (17:00)
[2024-12-29] MEDS ORDERED: METOPROLOL TARTRATE 25 MG TABLET PO SCH (17:00)
[2025-01-01] MEDS ORDERED: ERGOCALCIFEROL (VITAMIN D 2) 50,000 UNIT CAPSULE PO SCH (09:00)
== END 2024-12-29 17:20 | disposition home health service (06) | DRG 202 ==
LOC: ER 23:31 → TELE 12-28 02:41 → MED 12-29 12:32
DX: J45.901 Unspecified asthma with (acute) exacerbation (principal); J96.01 Acute respiratory failure with hypoxia; C78.01 Secondary malignant neoplasm of right lung; C78.02 Secondary malignant neoplasm of left lung; E66.9 Obesity, unspecified; E78.5 Hyperlipidemia, unspecified; I11.0 Hypertensive heart disease with heart failure; I25.10 Atherosclerotic heart disease of native coronary artery without angina pectoris; I50.9 Heart failure, unspecified; Z71.6 Tobacco abuse counseling; Z79.51 Long term (current) use of inhaled steroids; Z86.73 Personal history of transient ischemic attack (TIA), and cerebral infarction without residual deficits; F17.210 Nicotine dependence, cigarettes, uncomplicated; G47.33 Obstructive sleep apnea (adult) (pediatric); Z20.822 Contact with and (suspected) exposure to COVID-19; Z68.30 Body mass index [BMI] 30.0-30.9, adult; Z79.82 Long term (current) use of aspirin; Z85.818 Personal history of malignant neoplasm of other sites of lip, oral cavity, and pharynx
CPT/HCPCS: 36415; 71045-TC; 80048-TC; 80053-TC; 83605-TC; 83735-TC; 83880; 84100-TC; 84484-TC; 85025-TC; 87040-TC; 94799-TC; 97116-TC; 97530-TC; G0378; J1650; J2919; J7040; Q9967

== ENCOUNTER → 2025-01-22 | Emergency (ER) | payer MEDICARE ==
[~2025-01-22] VITALS: Ht 154.9 cm; Wt 63.5 kg
[~2025-01-22] MED LIST changes: -ALBU18HF2 INH; -ALBU8.5H8 IH; +ALBUTEROL FS 2.5 MG/3 ML VIAL.NEB ONE; -CEPH500T PO; +CHOL100043 PO; -ERGO500093 PO; -FLUT12AE5 INH; +HYDR-3980 PO; +HYDR-4077 PO; -IPRA3AMP23 IH; +IPRATROPIUM NEB FS 0.5 MG/2.5 ML AMPUL.NEB ONE; +METH4TAB3 PO; -METO25TA6 PO; +Magnesium 1GM/D5W 100ML PREMIX 100 ML IV ONE; -PRED20TA PO; +methylPREDNISolone SOD SUCC 125 MG/2ML VIAL ONE
[2025-01-22] MEDS: IPRATROPIUM NEB FS 0.5 MG/2.5 ML AMPUL.NEB NEB ONE (01:53)
[2025-01-22] MEDS: ALBUTEROL FS 2.5 MG/3 ML VIAL.NEB NEB ONE (01:53)
[2025-01-22 01:58] VITALS: O2SAT 94
[2025-01-22 02:13] VITALS: O2SAT 100
[2025-01-22 02:29] LABS: CALCIUM, SERUM 10.4 mg/dL (8.5-10.1); CREATININE 1.1 mg/dL (0.6-1.3); POTASSIUM 3.7 mmol/L (3.5-5.1)
[2025-01-22 02:32] LABS: BASOPHILS # (AUTO) 0.2 K/uL (0.0-0.2); BASOPHILS % (AUTO) 1.5 % (0.0-2.0); EOSINOPHILS # (AUTO) 1.1 K/uL (0.0-0.7); EOSINOPHILS % (AUTO) 10.3 % (0.0-6.0); HEMATOCRIT 41 % (33-45); HEMOGLOBIN 13.5 g/dL (11.5-14.8); LYMPHOCYTES # (AUTO) 2.9 K/uL (0.8-4.8); LYMPHOCYTES % (AUTO) 28.1 % (20.0-44.0); MEAN CORPUSCULAR HEMOGLOBIN 28 PG (26.0-33.0); MEAN CORPUSCULAR HGB CONC 33 g/dl (31.0-36.0); MEAN CORPUSCULAR VOLUME 85 fL (82-100); MONOCYTES # (AUTO) 0.9 K/uL (0.1-1.30); MONOCYTES % (AUTO) 8.3 % (2.0-12.0); NEUTROPHILS # (AUTO) 5.3 K/uL (1.8-8.9); NEUTROPHILS % (AUTO) 51.8 % (43.0-81.0); PLATELET COUNT (AUTO) 199 K/uL (150-450); RED BLOOD CELL COUNT(AUTO) 4.79 MIL/uL (4.0-5.2); RED CELL DISTRIBUTION WIDTH 14.1 % (11.5-15.0); WHITE BLOOD COUNT (AUTO) 10.3 K/uL (4.3-11.0)
[2025-01-22] MEDS: Magnesium 1GM/D5W 100ML PREMIX 200 ML IV ONE (02:32)
[2025-01-22] MEDS: methylPREDNISolone SOD SUCC 125 MG/2ML VIAL IV ONE (02:33)
[2025-01-22 05:04] VITALS: BP 132/76; TEMP 98; O2SAT 95
== END | disposition home or self-care (01) ==
LOC: ER 01:19
DX: J44.1 Chronic obstructive pulmonary disease with (acute) exacerbation (principal); C34.90 Malignant neoplasm of unspecified part of unspecified bronchus or lung; I10 Essential (primary) hypertension; F17.200 Nicotine dependence, unspecified, uncomplicated; Z88.1 Allergy status to other antibiotic agents; Z79.82 Long term (current) use of aspirin; Z79.899 Other long term (current) drug therapy
CPT/HCPCS: 99285; 96365; 71045; 96375; 93005; 85025; 80048; 36415; 94640; J3475 ×2; J2919

== ENCOUNTER 2025-03-25 01:01 | Emergency (ER) | payer MEDICARE ==
[~2025-03-25] VITALS: Ht 152.4 cm; Wt 61.2 kg
[~2025-03-25 01:01] MED LIST changes: -ALBUTEROL FS 2.5 MG/3 ML VIAL.NEB ONE; -IPRATROPIUM NEB FS 0.5 MG/2.5 ML AMPUL.NEB ONE; -Magnesium 1GM/D5W 100ML PREMIX 100 ML IV ONE; -methylPREDNISolone SOD SUCC 125 MG/2ML VIAL ONE
[2025-03-25 01:45] VITALS: O2SAT 91
[2025-03-25] MEDS: ALBUTEROL FS 2.5 MG/0.5 ML VIAL.NEB NEB ONE (01:45)
[2025-03-25] MEDS: IPRATROPIUM NEB FS 0.5 MG/2.5 ML AMPUL.NEB NEB ONE (01:45)
[2025-03-25] MEDS ORDERED: ALBUTEROL FS 2.5 MG/0.5 ML VIAL.NEB ONE (01:48)
[2025-03-25] MEDS ORDERED: IPRATROPIUM NEB FS 0.5 MG/2.5 ML AMPUL.NEB ONE (01:48)
[2025-03-25] MEDS ORDERED: dexaMETHasone SOD PHOSPHATE 1 ML ONE (01:49)
[2025-03-25] MEDS: dexaMETHasone SOD PHOSPHATE 4 MG/ML VIAL IM ONE (01:53)
[2025-03-25 02:05] VITALS: O2SAT 100
[2025-03-25] MEDS ORDERED: IV NS 0.9% 250 ML IV ONE (02:18)
[2025-03-25] MEDS ORDERED: IOHEXOL-350 100 ML VIAL IV ONE (02:18)
[2025-03-25 02:20] LABS: BASOPHILS # (AUTO) 0.1 K/uL (0.0-0.2); BASOPHILS % (AUTO) 1.9 % (0.0-2.0); EOSINOPHILS # (AUTO) 0.4 K/uL (0.0-0.7); EOSINOPHILS % (AUTO) 6.7 % (0.0-6.0); HEMATOCRIT 42 % (33-45); HEMOGLOBIN 13.9 g/dL (11.5-14.8); LYMPHOCYTES % (AUTO) 16.5 % (20.0-44.0); MEAN CORPUSCULAR HEMOGLOBIN 28 PG (26.0-33.0); MEAN CORPUSCULAR HGB CONC 33 g/dl (31.0-36.0); MEAN CORPUSCULAR VOLUME 85 fL (82-100); MONOCYTES # (AUTO) 0.8 K/uL (0.1-1.30); MONOCYTES % (AUTO) 12.9 % (2.0-12.0); NEUTROPHILS # (AUTO) 3.9 K/uL (1.8-8.9); PLATELET COUNT (AUTO) 175 K/uL (150-450); RED BLOOD CELL COUNT(AUTO) 4.93 MIL/uL (4.0-5.2); RED CELL DISTRIBUTION WIDTH 14.7 % (11.5-15.0); WHITE BLOOD COUNT (AUTO) 6.3 K/uL (4.3-11.0)
[2025-03-25 02:26] LABS: APPEARANCE,URINE CLEAR (CLEAR); BILIRUBIN,URINE NEGATIVE (NEGATIVE); BLOOD, URINE 1+ Ery/uL (NEGATIVE); COLOR,URINE YELLOW (YELLOW); KETONES,URINE NEGATIVE (NEGATIVE); LEUKOCYTE ESTERASE ,URINE NEGATIVE (NEGATIVE); NITRITE, URINE NEGATIVE (NEGATIVE); PROTEIN,URINE 2+ mg/dl (NEGATIVE); UGLUCOSE NEGATIVE (NEGATIVE); UROBILINOGEN,URINE 0.2 EU/dL (0.2)
[2025-03-25 02:28] LABS: CALCIUM, SERUM 9.9 mg/dL (8.5-10.1); CARBON DIOXIDE 29 mmol/L (21-32); CHLORIDE 101 mmol/L (98-107); CREATININE 1.1 mg/dL (0.6-1.3); GLUCOSE 120 mg/dL (74-106); POTASSIUM 3.9 mmol/L (3.5-5.1); SODIUM SERUM 138 mmol/L (136-145); UREA NITROGEN, BLOOD 31 mg/dL (7-18)
[2025-03-25 02:34] LABS: INR 1.02 (0.91-1.10); PARTIAL THROMBOPLASTIN TIME 30.5 SEC (24.3-34.3); PROTHROMBIN TIME 10.8 SECS (9.2-11.1)
[2025-03-25 02:38] LABS: ADD URINE CULTURE NO; BACTERIA,URINE Rare /HPF (None Seen); SQUAMOUS EPITHELIAL CELL,UR 0-2 /HPF (None Seen); WBC,URINE 0-2 /HPF (0-3)
[2025-03-25 02:42] LABS: ALANINE AMINOTRANSFERASE 38 U/L (12-78); ALBUMIN 3.8 g/dL (3.4-5.0); ALKALINE PHOSPHATASE 82 U/L (46-116); ASPARTATE AMINOTRANSFERASE 29 U/L (15-37); BILIRUBIN,DIRECT 0.1 mg/dL (0.0-0.2); BILIRUBIN,TOTAL 0.4 mg/dL (0.2-1.0); NT-PRO BNP 903 pg/mL (0-125); TOTAL PROTEIN, SERUM 7.8 g/dL (6.4-8.2)
[2025-03-25] MEDS ORDERED: PRED50TA PO (03:49)
[2025-03-25 04:34] VITALS: BP 147/81; TEMP 98; O2SAT 94
== END 2025-03-25 04:35 | disposition home or self-care (01) ==
LOC: ER 01:04
DX: J98.01 Acute bronchospasm (principal); C34.90 Malignant neoplasm of unspecified part of unspecified bronchus or lung; F17.200 Nicotine dependence, unspecified, uncomplicated; I10 Essential (primary) hypertension; Z79.52 Long term (current) use of systemic steroids; Z79.82 Long term (current) use of aspirin; Z79.899 Other long term (current) drug therapy; Z87.09 Personal history of other diseases of the respiratory system; Z88.8 Allergy status to other drugs, medicaments and biological substances; Z88.1 Allergy status to other antibiotic agents
CPT/HCPCS: 99285; 71275; 71045; 93005; 85025; 80048; 80076; 81001; 36415; 84484; 85730; 83880; 94640; 96372; J1100; J7050; Q9967

== ENCOUNTER 2025-05-03 08:49 | Emergency (ER) | payer MEDICARE ==
[~2025-05-03] VITALS: Ht 152.4 cm; Wt 61.2 kg
[2025-05-03 08:55] VITALS: TEMP 98.2
[2025-05-03] MEDS ORDERED: ONDANSETRON HCL/PF 4 MG/2 ML VIAL ONE (09:04)
[2025-05-03] MEDS: ONDANSETRON HCL/PF 4 MG/2 ML VIAL IVP ONE (09:15)
[2025-05-03] MEDS: IV NS 0.9% 1,000 ML BAG IV ONE (09:15)
[2025-05-03] MEDS ORDERED: LIDOCAINE VISCOUS 2% UD 15 ML UDC ONE (09:25)
[2025-05-03] MEDS ORDERED: FAMOTIDINE/PF INJ 20 MG/2 ML VIAL IV ONE (09:25)
[2025-05-03] MEDS ORDERED: MAG HYDROX/AL HYDROX/SIMETH 30 ML UDC ONE (09:25)
[2025-05-03] MEDS ORDERED: FAMO-131 PO (09:30)
[2025-05-03] MEDS ORDERED: ONDA4TAB5 PO (09:30)
[2025-05-03 09:32] LABS: PLATELET COUNT (AUTO) 219 K/uL (150-450); RED BLOOD CELL COUNT(AUTO) 5.07 MIL/uL (4.0-5.2); RED CELL DISTRIBUTION WIDTH 14.6 % (11.5-15.0); WHITE BLOOD COUNT (AUTO) 9.9 K/uL (4.3-11.0)
[2025-05-03 09:33] LABS: APPEARANCE,URINE CLEAR (CLEAR); BLOOD, URINE TRACE-INTA Ery/uL (NEGATIVE); LEUKOCYTE ESTERASE ,URINE 1+ (NEGATIVE); NITRITE, URINE NEGATIVE (NEGATIVE); UGLUCOSE NEGATIVE (NEGATIVE)
[2025-05-03] MEDS: LIDOCAINE VISCOUS 2% UD 15 ML UDC MM ONE (09:38)
[2025-05-03] MEDS: FAMOTIDINE/PF INJ 20 MG/2 ML VIAL IV ONE (09:38)
[2025-05-03] MEDS: MAG HYDROX/AL HYDROX/SIMETH 30 ML UDC PO ONE (09:38)
[2025-05-03 09:46] LABS: ADD URINE CULTURE YES
[2025-05-03 09:46] LABS: CALCIUM, SERUM 10.2 mg/dL (8.5-10.1); CREATININE 1.1 mg/dL (0.6-1.3); SODIUM SERUM 137.0 mmol/L (136-145); UREA NITROGEN, BLOOD 36.0 mg/dL (7-18)
[2025-05-03 09:48] LABS: ASPARTATE AMINOTRANSFERASE 15.0 U/L (15-37); TOTAL PROTEIN, SERUM 8.0 g/dL (6.4-8.2)
[2025-05-03 11:02] VITALS: BP 140/82; O2SAT 97
== END 2025-05-03 11:04 | disposition home or self-care (01) ==
LOC: ER 08:57
DX: R10.13 Epigastric pain (principal); R11.2 Nausea with vomiting, unspecified; F17.200 Nicotine dependence, unspecified, uncomplicated; I10 Essential (primary) hypertension; Z79.52 Long term (current) use of systemic steroids; Z79.82 Long term (current) use of aspirin; Z79.899 Other long term (current) drug therapy; Z87.09 Personal history of other diseases of the respiratory system; Z88.8 Allergy status to other drugs, medicaments and biological substances
CPT/HCPCS: 99284; 96374; 96361; 96375; 93005; 85025; 80048; 83690; 80076; 81001; 36415; J1308; J2405; J7030; A4223; 87086-TC